=== PATIENT | female | born 1965 | race Two or more races ===

== ENCOUNTER 2024-01-25 09:08 | Emergency (ER) | payer MEDICARE, OTHER ==
[~2024-01-25] VITALS: Ht 162.6 cm; Wt 88.9 kg
[2024-01-25] MEDS ORDERED: IBUPROFEN 400 MG TABLET ONE (09:48)
[2024-01-25] MEDS: LEVETIRACETAM (500MG) 500 MG in IV NS 0.9% 100 ML IV SCH (10:00)
[2024-01-25] MEDS: IV NS 0.9% 500 ML BAG IV ONE (10:00)
[2024-01-25 10:06] LABS: BASOPHILS % (AUTO) 0.3 % (0.0-2.0); EOSINOPHILS # (AUTO) 0.1 K/uL (0.0-0.7); EOSINOPHILS % (AUTO) 0.8 % (0.0-6.0); HEMATOCRIT 41 % (33-45); HEMOGLOBIN 13.4 g/dL (11.5-14.8); LYMPHOCYTES # (AUTO) 2.7 K/uL (0.8-4.8); LYMPHOCYTES % (AUTO) 41.7 % (20.0-44.0); MEAN CORPUSCULAR HEMOGLOBIN 28 PG (26.0-33.0); MEAN CORPUSCULAR HGB CONC 32 g/dl (31.0-36.0); MEAN CORPUSCULAR VOLUME 86 fL (82-100); MONOCYTES # (AUTO) 0.5 K/uL (0.1-1.30); MONOCYTES % (AUTO) 8.2 % (2.0-12.0); NEUTROPHILS # (AUTO) 3.1 K/uL (1.8-8.9); PLATELET COUNT (AUTO) 282 K/uL (150-450); RED CELL DISTRIBUTION WIDTH 13.1 % (11.5-15.0); WHITE BLOOD COUNT (AUTO) 6.4 K/uL (4.3-11.0)
[2024-01-25 10:18] LABS: CALCIUM, SERUM 9.7 mg/dL (8.5-10.1); CREATININE 0.8 mg/dL (0.6-1.3); POTASSIUM 3.6 mmol/L (3.5-5.1)
[2024-01-25] MEDS: IBUPROFEN 400 MG TABLET PO ONE (10:20)
[2024-01-25] MEDS: ACETAMINOPHEN ES 500 MG TABLET PO ONE (10:21)
[2024-01-25] MEDS ORDERED: ACETAMINOPHEN ES 500 MG TABLET ONE (10:21)
[2024-01-25] MEDS ORDERED: LORAZEPAM INJ 2 MG/ML VIAL ONE (10:24)
[2024-01-25] MEDS: LORAZEPAM 4 MG/ML VIAL IV ONE (10:25)
[2024-01-25] MEDS: LEVETIRACETAM (500MG) 1,000 MG in IV NS 0.9% 90 ML IV SCH (11:50)
[2024-01-25] MEDS ORDERED: AMOX-430 PO (12:33)
[2024-01-25 12:39] LABS: APPEARANCE,URINE CLEAR (CLEAR); BILIRUBIN,URINE NEGATIVE (NEGATIVE); BLOOD, URINE NEGATIVE Ery/uL (NEGATIVE); COLOR,URINE YELLOW (YELLOW); KETONES,URINE NEGATIVE (NEGATIVE); LEUKOCYTE ESTERASE ,URINE NEGATIVE (NEGATIVE); NITRITE, URINE NEGATIVE (NEGATIVE); PROTEIN,URINE NEGATIVE (NEGATIVE); UGLUCOSE NEGATIVE (NEGATIVE); UROBILINOGEN,URINE 0.2 EU/dL (0.2)
[2024-01-25 13:21] VITALS: BP 117/75; TEMP 98; O2SAT 98
== END 2024-01-25 13:21 | disposition home or self-care (01) ==
LOC: ER 09:23
DX: J18.9 Pneumonia, unspecified organism (principal); G40.409 Other generalized epilepsy and epileptic syndromes, not intractable, without status epilepticus; J45.909 Unspecified asthma, uncomplicated; R51.9 Headache, unspecified; R11.0 Nausea; Z88.8 Allergy status to other drugs, medicaments and biological substances
CPT/HCPCS: 99285; 96365; 71045; 96366; 96375; 85025; 80048; 81003; 36415; J2060; J7030 ×2; J7040; J1953 ×2